=== PATIENT | male | born 2000 | race Caucasian/White ===

== ENCOUNTER 2021-08-06 09:58 | Day surgery (SDC) | payer OTHER ==
[~2021-08-06] VITALS: Ht 172.7 cm; Wt 81.7 kg
[2021-08-06 11:16] VITALS: BP 123/75; PULSE 73; TEMP 98.2
[2021-08-06] MEDS ORDERED: LEXAPRO 10MG10 MG PO (11:19)
[2021-08-06] MEDS ORDERED: DESYREL 50MG50 MG PO (11:19)
[2021-08-06 12:10] VITALS: BP 106/54; PULSE 64; TEMP 96.8
--- NOTE | 2021-08-06 12:10 | NUR ---
Patient arrives to [facility] via cart, accompanied by [facility] RN Diann. Patient is drowsy, but awake and oriented. He ambulates with steady gait and standby assist to the chair in his room. Monitoring is applied - VSS and WNL on room air. He denies pain or nausea. RN reports that he had difficulty waking after anesthesia. His IVF are open at a rapid rate. He is offered and receives water to drink.
[2021-08-06 12:25] VITALS: BP 102/54; PULSE 70
[2021-08-06 12:40] VITALS: BP 110/64; PULSE 59
--- NOTE | 2021-08-06 12:41 | NUR ---
Dr. Lu talks with the patient at the bedside at this time.
--- NOTE | 2021-08-06 12:54 | NUR ---
Patient has met discharge criteria. DIscharge instructions are discussed. He denies any questions and verbalizes understanding. PIV is removed with catheter intact and hemostasis achieved. He changes to his clothing independently. He is escorted to the exit via wheelchair by JI Galeano. He is discharged to the care of his friend, Nayan, who drives him home in a private vehicle at 1256.
== END 2021-08-06 12:56 | disposition home or self-care (01) ==
LOC: SDCO 09:58
DX: K29.70 Gastritis, unspecified, without bleeding (principal); K29.80 Duodenitis without bleeding; K22.89 Other specified disease of esophagus; H53.149 Visual discomfort, unspecified
CPT/HCPCS: J2704; J7030